=== PATIENT | female | born 1955 | race Caucasian/White ===

== ENCOUNTER → 2021-06-17 14:50 | Outpatient (CLI) | payer MEDICARE, OTHER, SELFPAY ==
[2021-06-19 04:36] LABS: Candida species Negative (Negative); Gardnerella vaginalis Positive (Negative); Trichomoas vaginalis Negative (Negative)
== END ==
PROVIDERS: PCP Internal Medicine; Visit Provider Obstetrics & Gynecology
DX: N76.0 Acute vaginitis (principal); B96.89 Other specified bacterial agents as the cause of diseases classified elsewhere
CPT/HCPCS: 87070; 87205; 87480; 87510; 87660

== ENCOUNTER 2022-07-15 07:59 | Day surgery (SDC) | payer MEDICARE, OTHER, SELFPAY ==
[2022-07-09 10:12] VITALS: BMI 21.9
[2022-07-15] VITALS (8 sets, daily range): BP systolic 114–145; BP diastolic 73–84; PULSE 64–80; RESP 12–17; TEMP 36.1–36.5; O2SAT 95–99; BMI 21.9
--- NOTE | 2022-07-15 | PATH_ITS ---
[facility] Accession Number: [id number] No. of containers..01 Tissue . 01 Material submitted: . perianal area - RIGHT PERIANAL MASS . 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 See comment. MRV 07/21/2022 1417 Local . 01 Comment: Most of the stroma is remarkable for non-necrotising granulomas with multinucleate giant cells. Special stains (AFB, fungal and gram ) for evaluation of mycobacteria, fungal and bacterial organisms respectively are negative. . Differential diagnosis includes an infectious etiology (even though the special stains are negative) and sarcoidosis amongst other causes. In addition, inflammatory bowel disease (Crohn's disease) also enters the differential diagnosis in the appropriate clinical setting. Clinical correlation is recommended. . 01 Electronically signed: . Sheri Sepulveda MD, Pathologist NPI- [id number] . 01 Gross description: . The specimen is received in formalin labeled with the patient's name, , and R perianal mass, and consists of an unoriented fragment of skin measuring 2.0 x 1.7 x 1.3 cm. The cutaneous surface is trevino and wrinkled. The margin is inked blue. Sectioning reveals a trevino, firm cut surface. The specimen is submitted entirely as follows: A1: Ends. A2-A3: Remaining sequential slices. ([id number]) /MRV 07/16/2022 1701 Local . 01 Pathologist provided ICD-10: K62.0 . 01 CPT . 525544, 183850, 953494 Specimen Comment: A courtesy copy of this report has been sent to [phone] Performed at: 01 [facility] [address], [place], [place] [id number] MD Cedric Simmons MD Phone: [phone]
[2022-07-15] MEDS: LACTATED RINGERS 1,000 ML 100 ML IV (08:38)
--- NOTE | 2022-07-15 08:57 | PM.PREOP ---
Pre-operative Note COVID-19 COVID-19 status: Not tested Interval Note History & Physical reviewed/Exam performed by Physician: Yes Changes to H&P: No ASA Class (for procedural sedation): II
[2022-07-15] MEDS: CEFAZOLIN 2 GM/100 ML PREMIX 100 ML IV (09:18)
--- NOTE | 2022-07-15 09:32 | SUR.OPER ---
Lithotomy on padded OR bed, head on pillow, arms secured on padded arm boards at <90 degrees abduction. Legs secured in padded yellow fins stirrups.
[2022-07-15] MEDS: BUPIVACAINE LIPOSOME 266 MG/20 ML VIAL INJ (09:36)
--- NOTE | 2022-07-15 09:56 | P.OP_ITS ---
Operative Date/Time/Diagnoses Date of procedure: 07/15/22 Time of procedure: 09:56 Pre-op diagnosis: Perianal masses Post-op diagnosis: same Procedure & Clinicians Procedure: Examination under anesthesia and excisional biopsy of perianal mass Same procedure as scheduled: Yes Surgeon: Johnathan Awad Anesthesia Type: General Operative Notes Procedure in detail: The patient was given preoperative antibiotics. The patient was brought to the operating room and general anesthesia was induced via LMA. The perineum was prepped and draped in the usual fashion and a time-out was performed. Inspection of the anus demonstrated multiple large, firm, fleshy masses around t he anus. Some of these were contiguous. Exparel was injected around 1 of the masses in the right lateral position. A blueberry sized mass was resected with a 15 blade scalpel. The resulting wound was closed in layers using multiple interrupted 3-0 Vicryl sutures and a running 4-0 Monocryl subcuticular closure. Hemostasis was achieved after closure. A Gelfoam roll was inserted into the anus and gauze and mesh underwear were applied over the wound. The patient was awakened and brought to recovery room. EBL: 20 mL Specimen: Right perianal mass Post-operative Condition: stable Disposition: PACU
== END 2022-07-15 10:54 | disposition home or self-care (01) ==
PROVIDERS: PCP Internal Medicine; Referring Provider Surgery; Visit Provider Surgery
PROC: (CPT 45990; principal; 2022-07-15 09:45)
DX: K62.0 Anal polyp (principal)
CPT/HCPCS: 46220; C9290; J0690; J1100; J2250; J2405; J2704; J3010

== ENCOUNTER 2022-09-11 06:34 | Day surgery (SDC) | payer MEDICARE, OTHER, SELFPAY ==
--- NOTE | 2022-09-11 | PATH_ITS ---
[facility] Accession Number: [id number] No. of containers..10 Tissue . 01 Material submitted: . PART A: duodenum - DUODENUM PART B: duodenum bulb - DUODENUM BULB PART C: stomach - ANTRUM PART D: gastrointestinal site - GASTRIC BODY POLYP PART E: ileum - TERMINAL ILIEUM PART F: colon - RIGHT COLON PART G: colon - TRANSVERSE COLON PART H: colon - LEFT COLON PART I: sigmoid colon - SIGMOID BIOPSY PART J: rectum - RECTUM BIOPSY . 01 Diagnosis: A. Duodenum, Biopsy: Duodenal mucosa with no diagnostic abnormality. Negative for active inflammation, features of sprue, dysplasia, or malignancy. . B. Duodenal Bulb, Biopsy: Gastric heterotopia. Negative for dysplasia or malignancy. . C. Gastric Antrum, Biopsy: Gastric antral mucosa with mild chronic inflammation. Negative for Helicobacter organisms by immunohistochemistry. Negative for intestinal metaplasia. Negative for dysplasia or malignancy. . D. Gastric Body Polyp, Biopsy: Fundic gland polyp. No evidence of Helicobacter organisms on H/E stain. Negative for intestinal metaplasia. Negative for dysplasia and malignancy. . E. Terminal Ileum, Biopsy: Ileal mucosa with no diagnostic abnormality. Negative for active inflammation, granulomas, dysplasia or malignancy. . F-G. Right, Transverse Colon, Biopsies: Colonic mucosa with no significant diagnostic abnormality. Negative for active inflammation, granulomas, dysplasia, and malignancy. . H. Left Colon, Biopsy: Colonic mucosa with nonnecrotizing granuloma; please see comment. Negative for active inflammation, dysplasia or malignancy. . I. Sigmoid Colon, Biopsy: Focal moderate active colitis with nonnecrotizing granulomas; please see comment. Negative for dysplasia or malignancy. . J. Rectum, Biopsy: Mild active colitis. Negative for granulomas, dysplasia or malignancy. [facility] 09/19/2022 1724 Local . 01 Comment: Parts H-J: The findings in the left/sigmoid colon and rectal biopsies would support a clinical impression of Crohn's disease. . 01 Electronically signed: . Nato Samayoa MD, PhD, Pathologist NPI- [id number] . 01 Gross description: . Part A: DUODENUM : Received in formalin are 4 fragment(s) of trevino, soft tissue measuring 0.1 x 0.1 x 0.1 cm to 0.3 x 0.2 x 0.2 cm submitted entirely in 1 cassette(s) Part B: DUODENUM BULB: Received in formalin are 3 fragment(s) of trevino, soft tissue measuring 0.1 x 0.1 x 0.1 cm to 0.3 x 0.2 x 0.2 cm submitted entirely in 1 cassette(s) Part C: ANTRUM: Received in formalin are 3 fragment(s) of trevino, soft tissue measuring 0.1 x 0.1 x 0.1 cm to 0.3 x 0.2 x 0.2 cm submitted entirely in 1 cassette(s) Part D: GASTRIC BODY POLYP: Received in formalin are 2 fragment(s) of trevino, soft tissue measuring 0.2 x 0.2 x 0.2 cm to 0.3 x 0.3 x 0.3 cm submitted entirely in 1 cassette(s) Part E: TERMINAL ILIEUM: Received in formalin are 2 fragment(s) of trevino, soft tissue measuring 0.2 x 0.2 x 0.2 cm to 0.3 x 0.3 x 0.3 cm submitted entirely in 1 cassette(s) Part F: RIGHT COLON: Received in formalin are 2 fragment(s) of trevino, soft tissue measuring 0.1 x 0.1 x 0.1 cm to 0.3 x 0.2 x 0.2 cm submitted entirely in 1 cassette(s) Part G: TRANSVERSE COLON : Received in formalin are 2 fragment(s) of trevino, soft tissue measuring 0.1 x 0.1 x 0.1 cm to 0.3 x 0.2 x 0.2 cm submitted entirely in 1 cassette(s) Part H: LEFT COLON : Received in formalin is 1 fragment(s) of trevino, soft tissue measuring 0.5 x 0.1 x 0.1 cm submitted entirely in 1 cassette(s) Part I: SIGMOID BIOPSY: Received in formalin are multiple fragment(s) of trevino, soft tissue measuring 0.1 x 0.1 x 0.1 cm to 0.2 x 0.2 x 0.2 cm submitted entirely in 1 cassette(s) Part J: RECTUM BIOPSY: Received in formalin are 3 fragment(s) of trevino, soft tissue measuring 0.2 x 0.2 x 0.1 cm to 0.4 x 0.2 x 0.2 cm submitted entirely in 1 cassette(s) /JERMAIN 09/16/20221954 Local . 01 Microscopic: . C. An immunohistochemical stain was performed to evaluate for Helicobacter organisms and is negative. The control stain showed appropriate reactivity. . * This test was developed and its performance characteristics determined by [facility]. It has not been cleared or approved by the U.S. Food and Drug Administration. The FDA has determined that such clearance or approval is not necessary. This test is used for clinical purposes. It should not be regarded as investigational or for research. . 01 Pathologist provided ICD-10: K31.7, K29.70, K52.9 . 01 CPT . 702617, 162920, 238695, 204372, 578086, 657939, 875278, 620311, 363333, 585106, F11440 Specimen Comment: A courtesy copy of this report has been sent to [phone] Performed at: 01 [facility] [address] [place] [address], [place], [place] [id number] MD Cedric Simmons MD Phone: [phone]
[2022-09-11 07:02] VITALS: BP 143/80; PULSE 83; RESP 16; TEMP 36.9; O2SAT 94; BMI 20.5
[2022-09-11] MEDS: LACTATED RINGERS 1,000 ML 42 ML IV (07:12)
--- NOTE | 2022-09-11 07:41 | P.HP_ITS ---
History of Present Illness History of Present Illness Date Patient Seen: 09/11/22 Time Patient Seen: 07:41 Chief complaint: [facility] Narrative: Jeanette is a 66-year-old woman who presents with fibroepithelial polyps around the anus as well as abdominal discomfort and diarrhea. She would a colonoscopy in 2020 and [place] which did not suggest that she had any GI disorder. [facility] Medical History Arthritis Diverticula of colon Diverticulitis H/O vaginal delivery Hemorrhoid HLD (hyperlipidemia) HTN (hypertension) Interstitial cystitis Osteoarthritis of right knee Sinus drainage Surgical History History of total abdominal hysterectomy Hx of colonoscopy Family History Father History of heart disease Sister History of heart disease Social History household members: spouse Smoking Status: Former smoker alcohol intake: current Meds Home Medications and Allergies Home Medications Medication Instructions Recorded Confirmed Type estradiol 0.01% (0.1 mg/gram) 0.5 g vaginal 2XW #42.5 grams 03/06/22 09/11/22 Rx vaginal cream amlodipine 10 mg tablet 10 mg PO BEDTIME 07/15/22 09/11/22 History Allergies Allergy/AdvReac Type Severity Reaction Status Date / Time No Known Drug Allergies Allergy Verified 09/11/22 06:45 Exam Vital Signs (past 8 hours): - 09/11/22 07:02 Temperature 98.4 F Pulse Rate 83 Respiratory Rate 16 Blood Pressure 143/80 H Pulse Oximetry 94 Oxygen Delivery Method Room Air Oxygen Delivery Method Room Air Const General: No acute distress Assessment & Plan Assessment and plan (1) Change in bowel habits: Status: Acute Plan We reviewed the risks and benefits of EGD and colonoscopy and she would like to proceed.
[2022-09-11 08:23] VITALS: BP 122/82; PULSE 74; RESP 10; TEMP 36.4; O2SAT 98
--- NOTE | 2022-09-11 08:27 | PM.OP.EC ---
Operative Date/Time/Diagnoses Date of procedure: 09/11/22 Time of procedure: 08:27 Pre-op diagnosis: Change in bowel habits Post-op diagnosis: same Procedure & Clinicians Study performed: EGD and colonoscopy Same procedure as scheduled: Yes Surgeon: Johnathan Awad Procedure Notes Procedure in detail: Surgeon: Johnathan Awad MD Anesthesia: Bacilio Tanner CRNA Procedure in detail: A timeout was performed. A bite blocked was placed and monitors were attached to the patient. The patient was positioned in a left lateral decubitus position. Sedation was administered. Once the patient was sedated the endoscope was inserted through the bite block and passed through the esophagus and stomach and into the duodenum. The duodenal mucosa appeared normal. We took random biopsies of the duodenal mucosa. The scope was withdrawn into the duodenal bulb and no abnormalities were seen. Random biopsies were taken from the duodenal bulb. We then withdrew the scope into the stomach. There were polyps in the proximal stomach consistent with fundic gland polyps. One of these was biopsied with cold forceps. Random biopsies were also taken from the antrum. There was no obvious antritis. The endoscope was retroflexed and a small hiatal hernia was noted. The endoscope was straightned and withdrawn into the esophagus. No other abnormalities were seen. Findings: Fundic gland type polyps in the proximal stomach, small hiatal hernia Next we repositioned the patient for a colonoscopy. A digital rectal exam was performed and the large perianal fibroepithelial polyps were seen. The colonoscope was inserted and advanced to the cecum. The appendiceal orifice was identified and photographed. We intubated the terminal ileum and no abnormalities were seen. We took random biopsies from the terminal ileal mucosa. The scope was slowly withdrawn over greater than 6 minutes. Random biopsies were taken from the right colon, transverse colon, left colon, sigmoid colon and rectum. There were some mild inflammatory appearance of the distal sigmoid colon. The scope was retroflexed in the rectum and some internal hemorrhoids were noted as well as the large perianal fibroepithelial polyps. Findings: Possible mild inflammation of the distal sigmoid colon and fibroepithelial polyps at the anal canal EBL: 10 mL Scope withdrawal time: 12 minutes Sedation minutes: 32 minutes Post-procedure Disposition: PACU
[2022-09-11 08:28] VITALS: BP 125/82; PULSE 70; RESP 18; O2SAT 99
[2022-09-11 08:33] VITALS: BP 120/80; PULSE 69; RESP 16; O2SAT 99
[2022-09-11 08:37] VITALS: BP 133/83; PULSE 81; RESP 19; TEMP 36.5; O2SAT 98
== END 2022-09-11 08:57 | disposition home or self-care (01) ==
PROVIDERS: PCP Internal Medicine; Referring Provider Surgery; Visit Provider Surgery
PROC: 0DJD8ZZ Inspection of Lower Intestinal Tract, Via Natural or Artificial Opening Endoscopic (ICD-10-PCS; CPT 45378; principal; 2022-09-11 07:45)
PROC: 0DJ08ZZ Inspection of Upper Intestinal Tract, Via Natural or Artificial Opening Endoscopic (ICD-10-PCS; CPT 43235; 2022-09-11 07:45)
DX: R19.4 Change in bowel habit (principal); K31.7 Polyp of stomach and duodenum; K44.9 Diaphragmatic hernia without obstruction or gangrene; K62.0 Anal polyp; I10 Essential (primary) hypertension; E78.5 Hyperlipidemia, unspecified; Z87.891 Personal history of nicotine dependence
CPT/HCPCS: 45380; 43239; J1100; J2405; J2704